=== PATIENT | female | born 1965 | race Caucasian/White ===

== ENCOUNTER → 2021-01-12 12:38 | Outpatient (BNVA) | payer MEDICARE, BC, SELFPAY | PROVIDERS: PCP Internal Medicine; Visit Provider Physician Assistant | DX: E66.9 Obesity, unspecified (principal); Z68.37 Body mass index [BMI] 37.0-37.9, adult | CPT/HCPCS: 99202 ==

== ENCOUNTER 2022-12-17 07:48 | Outpatient (REF) | payer BC, SELFPAY | END 2022-12-17 07:49 | disposition home or self-care (01) | LOC: HO.SH 07:48 | PROVIDERS: Visit Provider Internal Medicine Cardiovascular Disease | DX: Z01.118 Encounter for examination of ears and hearing with other abnormal findings (principal); H90.3 Sensorineural hearing loss, bilateral | CPT/HCPCS: 92557; 92700 ==